=== PATIENT | male | born 1990 | race Caucasian/White ===

== ENCOUNTER 2021-01-11 14:38 | Emergency (ER) | payer OTHER, SELFPAY ==
[2021-01-11 14:44] VITALS: BP 163/89; PULSE 75; RESP 16; TEMP 37.1; O2SAT 97
--- NOTE | 2021-01-11 14:47 | ED.EAR ---
HPI - Ear Problem General Chief complaint: Ear Stated complaint: ear pain Time Seen by Provider: 01/11/21 14:47 Source: patient and RN notes reviewed Mode of arrival: ambulatory Limitations: no limitations History of Present Illness HPI Narrative: 30-year-old male presents to the [facility] with complaints of right ear pain that started 20 minutes prior to arrival. Patient has not taken anything for pain. Denies any trauma. No fevers. Denies any past medical history. Related Data Allergies Allergy/AdvReac Type Severity Reaction Status Date / Time No Known Allergies Allergy Verified 05/17/20 15:47 Review of Systems Review of Systems: All systems reviewed & are unremarkable except as noted in HPI and below Constitutional: Constitutional: Reports no additional constitutional complaints, Denies chills and Denies fever(s) Eyes: Eyes: Reports no additional eye complaints ENT: Reports as per HPI Comments: Right ear pain Cardiovascular: Cardiovascular: Reports no additional cardiovascular complaints and Denies chest pain Respiratory: Respiratory: Reports no additional respiratory complaints, Denies cough and Denies dyspnea Gastrointestinal: Gastrointestinal: Reports no additional gastrointestinal complaints Musculoskeletal: Musculoskeletal: Reports no additional musculoskeletal complaints Integumentary/Breasts: Skin/Breast: Reports system reviewed and no additional complaints, except as docu Neurologic: Reports system reviewed and no additional complaints, except as documented Psychiatric: Psychiatric: Reports no additional psychiatric complaints Allergic/Immunologic: Allergic/Immunologic: Reports no additional allergic/immunologic complaints PMFSH Past Medical History Medical History (Updated 01/11/21 @ 14:53 by Carisa Chacon) Prediabetes Restless leg syndrome Family History Family History Grandparent Diabetes mellitus Other Depression Family history of malignant neoplasm of breast in first degree relative Social History Social History Smoking status: Never smoker Alcohol intake: never Comments At the time of my signature, I reviewed and agree with the nursing past medical, surgical, social, and family history. There is no relevant family history pertinent to the patient complaint. Exam Const: General: no acute distress and alert Nutritional Appearance: well nourished and obese morbidly obese Orientation/consciousness: patient oriented x3 Limitations: no limitations HENMT: Head: normal to inspection Ears: hearing grossly normal bilaterally, external ears normal, TM's normal bilaterally and Abnormal EAC present erythema on the right, edema on the right and EAC tenderness on the right; no foreign body and no otic discharge General nose exam: Normal external nose present, Normal nares present, Normal nasal mucous membranes and turbinates present and No nasal discharge present Face and sinus: normal facial exam and sinuses nontender Mouth: Yes Normal oral and palatal mucosa present and Yes lip normal Throat: posterior oropharynx normal, tonsils normal, uvula midline and no uvular edema Eyes: Conjunctivae: conjunctivae normal Pupils: Equal, round and reactive pupils present Neck: Neck: normal visual inspection, no lymphadenopathy and no meningeal signs Chest: Chest palpation & inspection: normal inspection of the chest Resp: Effort & Inspection: normal respiratory effort and no use of accessory muscles Auscultation: clear to auscultation bilaterally, no crackles, no rales, no rhonchi and no wheezes Cardio: Rate: regular rate Rhythm: regular rhythm Skin: General skin exam: normal color Rashes: no rashes Wounds: no wounds Neuro: General: patient oriented x3, moves all extremities, no meningeal signs and no focal motor deficits Speech: normal speech Gait exam (Neuro): Normal gait present Extr
== END 2021-01-11 15:03 | disposition home or self-care (01) ==
PROVIDERS: Emergency Provider Nurse Practitioner; PCP Family Medicine
DX: H60.501 Unspecified acute noninfective otitis externa, right ear (principal); G25.81 Restless legs syndrome
CPT/HCPCS: 99213; G0463

== ENCOUNTER → 2021-01-14 06:55 | Outpatient (CLI) | payer OTHER, SELFPAY ==
[2021-01-14 17:52] LABS: SARS-CoV-2 RNA PCR Negative
== END ==
PROVIDERS: PCP Family Medicine; Visit Provider Family Medicine
DX: R50.9 Fever, unspecified (principal); Z20.822 Contact with and (suspected) exposure to COVID-19
CPT/HCPCS: C9803; U0003; U0005

== ENCOUNTER 2021-06-01 14:56 | Emergency (ER) | payer OTHER, SELFPAY ==
[2021-06-01 15:08] VITALS: BP 138/70; PULSE 69; RESP 16; TEMP 36.2; O2SAT 99
--- NOTE | 2021-06-01 15:08 | ED.EXTPRO ---
HPI - Extremity Problem General Chief complaint: Extremity Problem,Nontraumatic Stated complaint: lt foot pain History of Present Illness HPI Narrative: Patient comes in complaining of pain of the left foot and states that it has been hurting for about a month but he has not had a opportunity to have it evaluated. Paitent states that he has continued to walk on it but it is proressively getting worse. Related Data Allergies Allergy/AdvReac Type Severity Reaction Status Date / Time No Known Allergies Allergy Verified 05/17/20 15:47 Review of Systems Review of Systems: left dorsal foot pain All systems reviewed & are unremarkable except as noted in HPI and below PMFSH Past Medical History Medical History (Updated 06/01/21 @ 15:17 by Mark Anthony Hicks NP) Prediabetes Restless leg syndrome Family History Family History Grandparent Diabetes mellitus Other Depression Family history of malignant neoplasm of breast in first degree relative Social History Social History Smoking status: Never smoker Alcohol intake: never Comments At time as signature, I have reviewed and agree with nursing past medical, social, surgical and family history. Please see nursing chart for further information. There is no relevant family history pertinent to the presenting complaint. Exam Narrative: GENERAL:Well-appearing, well-nourished, and in no acute distress. HEAD:Normocephalic EYES: PERRLA CHEST: No respiratory distress. HEART: Regular rate and rhythm. ABDOMEN: Soft, nontender, nondistended EXTREMITIES: decreased range of motion due to dorsal pain that shoot pain with palpation at the middle of metatarsal area. NEURO: No focal deficits. Alert and oriented x3. Course Vital Signs Vital signs: Vital Signs Temperature 97.2 F L 06/01/21 15:08 Pulse Rate 69 06/01/21 15:08 Respiratory Rate 16 06/01/21 15:08 Blood Pressure 138/70 06/01/21 15:08 Pulse Oximetry 99 06/01/21 15:08 Temperature 97.2 F L 06/01/21 15:08 Pulse Rate 69 06/01/21 15:08 Respiratory Rate 16 06/01/21 15:08 Blood Pressure 138/70 06/01/21 15:08 Pulse Oximetry 99 06/01/21 15:08 Discharge Plan Discharge Clinical Impression: Plantar fasciitis of left foot Patient Disposition: Home, Self-Care Condition: Stable Instructions: Antibiotic Form, Plantar Fasciitis (ED), Plantar Fasciitis Exercises (ED) Additional Instructions: Avoid weight bearing until the pain subsides. Ice to the area 20-30 minutes 4-6 times a day Elastic wrap or orthopedic splint as directed for comfort for the next 5-7 days Tylenol for lesser pain Ibuprofen regularly for the next 2-3 days for the inflammation Follow up with your primary care provider if the condition is not improving within 1 week or sooner if the condition worsens with numbness, tingling, decrease sensation with weakness to seek ER. You may need to get some new shoes and to see a human resources technician. If you continue to have pain it is important to see Podiatry Prescriptions: New ibuprofen 600 mg tablet 600 mg PO TID PRN (Reason: pain) Qty: 30 RF: 0 No Action paroxetine HCl 40 mg tablet See Rx Instructions .ROUTE .COMPLEX Qty: 90 RF: 1 trazodone 50 mg tablet See Rx Instructions .ROUTE .COMPLEX Qty: 60 RF: 3 Follow-up/Referrals: Sammy Butler MD [Primary Care Provider] - Stand Alone Forms: Work/School Release IP Time of Disposition: 15:17
== END 2021-06-01 15:24 | disposition home or self-care (01) ==
PROVIDERS: Emergency Provider Nurse Practitioner Family; PCP Family Medicine
DX: M72.2 Plantar fascial fibromatosis (principal); R73.03 Prediabetes; G25.81 Restless legs syndrome
CPT/HCPCS: 99213; G0463

== ENCOUNTER 2022-03-13 04:39 | Emergency (ER) | payer OTHER, SELFPAY ==
--- NOTE | ~2022-03-13 | XR_ITS ---
EXAMINATION: XR chest 1V portable DATE: 03/13/2022 06:23 INDICATION: Chest pain. TECHNIQUE: A single frontal view of the chest was obtained. COMPARISON: Chest 2 views 01/13/2014, CT abdomen and pelvis 01/08/2013 FINDINGS: The chest demonstrates clear lungs without pneumonia, pleural effusion, or pneumothorax. Th e heart size is normal. IMPRESSION: 1. No acute cardiopulmonary disease. Reviewed, dictated and finalized at location A.
[2022-03-13 04:43] VITALS: BP 157/81; PULSE 77; RESP 18; TEMP 36.8; O2SAT 97
[2022-03-13 05:33] LABS: Basophils Percent Auto 0.4 % (0.2-1.2); Eosinophils Absolute Auto 0.4 K/mm3 (0-0.3); Hematocrit 41.9 % (42.0-52.0); Immature Granulocyte Absolute 0.03 K/mm3 (0.00-0.031); Immature Granulocyte Percent A 0.3 % (0-0.5); Lymphocytes Absolute Auto 2.93 K/mm3 (0.9-3.2); Lymphocytes Percent Auto 28.4 % (18.3-44.2); Mean Corpuscular HGB Conc 33.4 g/dl (32-36); Mean Corpuscular Hemoglobin 29.5 pg (26-34); Mean Corpuscular Volume 88.4 fl (80-100); Mean Platelet Volume 11.1 fl (7.4-10.4); Monocytes Absolute Auto 0.8 K/mm3 (0.1-0.6); Monocytes Percent Auto 7.9 % (2.6-8.5); Neutrophils Absolute Auto 6.1 K/mm3 (1.3-6.7); Platelet Count Result 290 k/mm3 (150-375); Red Blood Count 4.74 M/mm3 (4.6-6.20); Red Cell Distribution Width 12.6 % (11.5-14.5); White Blood Count 10.3 K/mm3 (4.5-10.0)
[2022-03-13 05:35] LABS: Appearance Urine Clear (Clear); Bilirubin Urine 1+ (Negative); Blood Urine Negative (Negative); Color Urine Yellow (Yellow); Glucose Urine UA Negative (Negative); Ketones Urine 1+ mg/dL (Negative); Leukocyte Esterase Ur Negative LEU/UL (Negative); Nitrate Urine Negative (Negative); Protein Urine Negative (Negative)
[2022-03-13 05:39] LABS: Bacteria Urine Trace /hpf; Mucus Urine Heavy /lpf; RBC Urine 0-2 /hpf (0-2); Squamous Epithelial Cell Urine Few /hpf (Few); WBC Urine 0-3 /hpf
[2022-03-13 05:40] VITALS: BP 128/56; PULSE 70; RESP 16; O2SAT 96
[2022-03-13 05:40] LABS: Add Urine Microscopic? YES
--- NOTE | 2022-03-13 05:41 | ECG_ITS ---
Measurements Intervals [place] Rate: 69 P: 20 [place]: 170 QRS: 19 QRSD: 105 T: 14 QT: 409 QTc: 440 Interpretive Statements SINUS RHYTHM INCOMPLETE RIGHT BUNDLE BRANCH BLOCK BORDERLINE ST-T WAVE ABNORMALITY- INFERIOR LEADS BASELINE ARTIFACT- III, AVF BORDERLINE ECG NO PREVIOUS ECG AVAILABLE FOR COMPARISON Electronically Signed On 03-13-2022 6:57:46 CDT by Jace Melgar D.O.
--- NOTE | 2022-03-13 05:41 | ED.GENADULT ---
HPI - General Adult General Chief complaint: Abdominal Pain Stated complaint: ABD pain Time Seen by Provider: 03/13/22 04:54 History of Present Illness HPI narrative: this is a 31-year-old male presenting to the ED with a chief complaint of epigastric/ chest pain. Patient says he was watching TV at 1:00 a.m. when he started to have a pressure right below his sternum. It is nonradiating. 5/10 in intensity. It was constant for 45 minutes and then abated. He has never experienced pain like this before. There are no exacerbating or alleviating factors. He did become nauseous but denies vomiting. He denies diaphoresis, radiation or exertional component. Patient has been feeling well otherwise the last several days. His last bowel movement was 2 hours ago and was normal in nature. The patient is anxious that he may be having a heart attack. Related Data Allergies Allergy/AdvReac Type Severity Reaction Status Date / Time No Known Allergies Allergy Verified 03/13/22 05:20 Review of Systems Review of Systems: CONSTITUTIONAL: Denies night sweats. EYES: No eye pain ENT: Denies rhinorrhea CARDIOVASCULAR: Denies palpitations RESPIRATORY: Denies hemoptysis GASTROINTESTINAL: Denies hematemesis GENITOURINARY: Denies hematuria. SKIN: Denies rash MUSCULOSKELETAL: Denies myalgia. NEUROLOGIC: Denies weakness. PSYCHIATRIC: Denies delusions PMFSH Past Medical History Medical History Prediabetes Restless leg syndrome Family History Family History Grandparent Diabetes mellitus Other Depression Family history of malignant neoplasm of breast in first degree relative Social History Social History Smoking status: Never smoker Alcohol intake: never Exam Narrative: APPEARANCE: No apparent distress. Head atraumatic. EYES: PERRLA/EOMI, NOSE: Normal no drainage NECK: Supple, Trachea midline RESPIRATORY: CTAB, No increased work of breathing. CARDIOVASCULAR: S1S2 appreciated ABDOMINAL: Patient has mild tenderness to palpation in the epigastric area. The wrist was abdomen is obese nontender with no guarding or rebound. MUSCULOSKELETAl: No obvious deformities NEURO: Alert. Moving 4/4 extremities SKIN:: Warm, dry. Normal color PSYCHIATRIC: Normal affect Course Vital Signs Vital signs: Vital Signs Temperature 98.2 F 03/13/22 04:43 Pulse Rate 77 03/13/22 04:43 Respiratory Rate 18 03/13/22 04:43 Blood Pressure 157/81 H 03/13/22 04:43 Pulse Oximetry 97 03/13/22 04:43 Oxygen Delivery Room Air 03/13/22 04:43 Temperature 98.2 F 03/13/22 04:43 Pulse Rate 70 03/13/22 05:40 Respiratory Rate 16 03/13/22 05:40 Blood Pressure 128/56 L 03/13/22 05:40 Pulse Oximetry 96 03/13/22 05:40 Oxygen Delivery Room Air 03/13/22 04:43 Medical Decision Making MDM Narrative Medical decision making narrative: This is a 31-year-old male presenting with a chief complaint of epigastric/ chest pain. Patient is most concerning is having a heart attack. Basic lab work including troponin will be ordered. EKG and chest x-ray also been obtained. Patient also has epigastric tenderness which is more consistent with gastritis. Patient will be given a GI cocktail to see if that relieves his symptoms. Lab work was within normal limits. Patient's troponin was undetectable. Has been over 3 hours since the chest pain. It also was not required. EKG interpretation: Rhythm [sinus], Rate 69, [place] -[normal], [place] -[normal], QRS [narrow], QTC [normal], T waves -[negative for concerning inversions], ST Segments - [Negative for concerning elevations] Final interpretations: [Normal Sinus Rhythm] Chest x-ray Was negative for any acute cardiopulmonary disease. Patient's EKGs and labs are reviewed without significant high risk changes. Cardiac risk f
[2022-03-13 05:47] LABS: Alanine Aminotransferase 34 U/L (6-50); Albumin Level 4.2 g/dL (3.5-5.1); Alkaline Phosphatase 67 U/L (38-126); Anion Gap 10 mmol/L (8-16); Aspartate Amino Transferase 45 U/L (17-59); Bilirubin,Total 0.6 mg/dL (0.2-1.3); Blood Urea Nitrogen 12 mg/dL (9-20); Calcium 9.1 mg/dL (8.4-10.2); Carbon Dioxide 25 mmol/L (22-30); Chloride 103 mmol/L (98-107); Estimated CRCL calculation 225 ml/min; Estimated Glomerular Filt Rate > 60; Glucose 121 mg/dL (65-110); Lipase 47 U/L (23-300); Potassium 3.8 mmol/L (3.4-5.0); Sodium 138 mmol/L (137-145)
[2022-03-13] MEDS: FAMOTIDINE 20 MG/2 ML VIAL IV PUSH (05:48)
[2022-03-13] MEDS: MAG HYDROX/AL HYDROX/SIMETH 30 ML UDC PO (05:48)
[2022-03-13 06:45] LABS: Troponin I < 0.012 ng/mL (0.000-0.034)
[2022-03-13 07:13] VITALS: BP 116/57; PULSE 73; RESP 18; O2SAT 98
== END 2022-03-13 07:14 | disposition home or self-care (01) ==
PROVIDERS: Emergency Provider Emergency Medicine; PCP Family Medicine
DX: K29.70 Gastritis, unspecified, without bleeding (principal); R07.9 Chest pain, unspecified; R73.03 Prediabetes; G25.81 Restless legs syndrome; I45.10 Unspecified right bundle-branch block; R94.31 Abnormal electrocardiogram [ECG] [EKG]
CPT/HCPCS: 36415; 71045; 80053; 81001; 83690; 84484; 85025; 93005; 96374; 99284; A9270

== ENCOUNTER 2023-03-10 12:30 | Outpatient (CLI) | payer OTHER, SELFPAY ==
[2023-03-10 12:50] LABS: Basophils Percent Auto 0.5 % (0.2-1.2); Eosinophils Absolute Auto 0.2 K/mm3 (0-0.3); Eosinophils Percent Auto 1.9 % (0-4.4); Hematocrit 42.6 % (42.0-52.0); Hemoglobin 13.8 g/dL (14.0-18.0); Immature Granulocyte Absolute 0.02 K/mm3 (0.00-0.031); Immature Granulocyte Percent A 0.3 % (0-0.5); Lymphocytes Absolute Auto 2.44 K/mm3 (0.9-3.2); Lymphocytes Percent Auto 30.8 % (18.3-44.2); Mean Corpuscular HGB Conc 32.4 g/dl (32-36); Mean Corpuscular Volume 89.5 fl (80-100); Mean Platelet Volume 10.8 fl (7.4-10.4); Monocytes Absolute Auto 0.6 K/mm3 (0.1-0.6); Monocytes Percent Auto 7.4 % (2.6-8.5); Neutrophils Absolute Auto 4.7 K/mm3 (1.3-6.7); Neutrophils Percent Auto 59.1 % (45.5-73.1); Platelet Count Result 271 k/mm3 (150-375); Red Blood Count 4.76 M/mm3 (4.6-6.20); Red Cell Distribution Width 12.2 % (11.5-14.5); White Blood Count 7.9 K/mm3 (4.5-10.0)
[2023-03-10 13:02] LABS: Alanine Aminotransferase 35 U/L (6-50); Albumin Level 4.2 g/dL (3.5-5.1); Alkaline Phosphatase 63 U/L (38-126); Anion Gap 4 mmol/L (8-16); Aspartate Amino Transferase 34 U/L (17-59); Bilirubin,Total 0.8 mg/dL (0.2-1.3); Blood Urea Nitrogen 9 mg/dL (9-20); Carbon Dioxide 32 mmol/L (22-30); Chloride 101 mmol/L (98-107); Cholesterol 163 mg/dL (0-200); Estimated Glomerular Filt Rate > 60; Glucose 110 mg/dL (65-110); HDL Direct 47 mg/dL; Potassium 3.7 mmol/L (3.4-5.0); Sodium 137 mmol/L (137-145); Triglycerides 131 mg/dL (<150)
[2023-03-10 13:08] LABS: Hemoglobin A1C 5.9 % (<5.7)
[2023-03-10 13:13] LABS: LDL Cholesterol Direct 82 mg/dL
== END 2023-03-10 12:31 | disposition home or self-care (01) ==
PROVIDERS: PCP Family Medicine; Visit Provider Nurse Practitioner Family
DX: R73.03 Prediabetes (principal); K75.9 Inflammatory liver disease, unspecified; K76.0 Fatty (change of) liver, not elsewhere classified; I10 Essential (primary) hypertension
CPT/HCPCS: 36415; 80053; 80061; 83036; 84443; 85025

== ENCOUNTER 2023-11-05 17:59 | Emergency (ER) | payer OTHER, SELFPAY ==
--- NOTE | ~2023-11-05 | CT_ITS ---
EXAMINATION: CT lumbar spine wo con DATE: 11/05/2023 19:03 INDICATION: lbp, worse on left side . TECHNIQUE: Computed tomography (CT) of the lumbar spine was performed without intravenous contrast. A utomated exposure control and iterative reconstruction technique were employed. The dose-length produ ct was 1493.51 mGy-cm. COMPARISON: Pelvis 01/08/2013. FINDINGS: Exam limited by body habitus. 5 nonrib-bearing lumbar-type vertebral bodies. Pedicles intac t. Normal vertebral body alignment. Vertebral body heights preserved. Multilevel moderate degenerativ e disc disease. Multilevel moderate facet arthropathy. Multilevel moderate bilateral neural foraminal narrowing secondary to degenerative changes. Moderate central canal narrowing at L3-4, secondary to degenerative disc, facet, and ligamentum changes. Mild degenerative changes in the SI joints. IMPRESSION: No acute fracture or traumatic malalignment in the lumbar spine. Reviewed, dictated and finalized at location K.
[2023-11-05 18:01] VITALS: BP 133/76; PULSE 74; RESP 18; TEMP 36.1; O2SAT 100
--- NOTE | 2023-11-05 18:06 | ED.BACK ---
HPI - Back Pain/Injury General Chief Complaint: Back Pain/Injury <Cindy Mckeon PA-C - Last Filed: 11/05/23 18:14> Stated Complaint: sciatic nerve pain <Cindy Mckeon PA-C - Last Filed: 11/05/23 18:14> Time Seen by Provider: 11/05/23 18:06 <Cindy Mckeon PA-C - Last Filed: 11/05/23 18:14> Focused HPI: Patient is a 32-year-old male who presents the ED with report of lower back pain. Patient reports having pain all day today, but states pain became severe approximately 10 minutes prior to coming to the ED. He has not tried anything for pain today. He reports history of similar pain a few weeks ago, which improved on its own after a few days. Denies any recent strenuous activity, but does note he has been exercising over the last few days. States pain is worse throughout left lower back. Worse with any type of movement. Denies radiation down legs. Denies incontinence, saddle anesthesia, abdominal pain, dysuria, hematuria. GENERAL: Well-appearing, morbidly obese, and in no acute distress. HEAD: Normocephalic, atraumatic. CHEST: Clear to auscultation. ?No respiratory distress. HEART: Regular rate and rhythm.? MSK: No midline spinal tenderness. TTP throughout L lumbosacral region. No palpable deformities. Sensation intact. NEURO: ?Alert and oriented x3. Patient screened in triage and initial orders placed.? ?Additional care and disposition to be based upon?diagnostic testing and treatment. <Cindy Mckeon PA-C - Last Filed: 11/05/23 18:14> Source: patient <Cindy Mckeon PA-C - Last Filed: 11/05/23 18:14> Mode of arrival: ambulatory <Cindy Mckeon PA-C - Last Filed: 11/05/23 18:14> Limitations: no limitations <Cindy Mckeon PA-C - Last Filed: 11/05/23 18:14> History of Present Illness HPI Narrative: agree with HPI. <Earle Cruz MD - Last Filed: 11/05/23 20:32> Related Data Allergies/Adverse Reactions: Allergies Allergy/AdvReac Type Severity Reaction Status Date / Time No Known Allergies Allergy Verified 12/11/22 16:01 <Cindy Mckeon PA-C - Last Filed: 11/05/23 18:14> Review of Systems Gastrointestinal: Gastrointestinal: Reports no additional gastrointestinal complaints <Earle Cruz MD - Last Filed: 11/05/23 20:32> Musculoskeletal: Musculoskeletal: Reports back pain, Denies arthralgias and Denies joint swelling <Earle Cruz MD - Last Filed: 11/05/23 20:32> Neurologic: Reports system reviewed and no additional complaints, except as documented <Earle Cruz MD - Last Filed: 11/05/23 20:32> [facility] Past Medical History Medical History: Medical History Prediabetes Restless leg syndrome <Cindy Mckeon PA-C - Last Filed: 11/05/23 18:14> Family History Family History: Family History Grandparent Diabetes mellitus Other Depression Family history of malignant neoplasm of breast in first degree relative <Cindy Mckeon PA-C - Last Filed: 11/05/23 18:14> Social History Social History: Social History Smoking status: Never smoker Alcohol intake: never <Cindy Mckeon PA-C - Last Filed: 11/05/23 18:14> Exam Narrative: GENERAL: Well-appearing, Obese, and in no acute distress. HEAD: Normocephalic, atraumatic. ENT: Mucous membranes moist. CHEST: Clear to auscultation. No respiratory distress. HEART: Regular rate and rhythm. Normal peripheral pulses. back: No midline tenderness of the T-spine. There is generalized tenderness of the low back more so on left than the right. EXTREMITIES: Normal range of motion. NEURO: Alert and oriented x3. PSYCH: Normal mood and affect. <Earle Cruz MD - Last Filed: 11/05/23 20:32> Course Course Emergency Course:
[2023-11-05] MEDS: ACETAMINOPHEN 500 MG TABLET 1000 MG PO (18:34)
[2023-11-05] MEDS: CYCLOBENZAPRINE HCL 10 MG TABLET PO (18:34)
[2023-11-05] MEDS: methylPREDNISolone SOD SUCC 125 MG VIAL IM (18:35)
[2023-11-05] MEDS: KETOROLAC (*BKC) 60 MG/2 ML VIAL IM (18:37)
[2023-11-05 20:50] VITALS: BP 142/71; PULSE 70; RESP 17; O2SAT 99
== END 2023-11-05 20:52 | disposition home or self-care (01) ==
PROVIDERS: Emergency Provider Emergency Medicine; PCP Nurse Practitioner Family
DX: M54.50 Low back pain, unspecified (principal); G25.81 Restless legs syndrome; R73.03 Prediabetes
CPT/HCPCS: 72131; 96372; 99284; A9270; J1885; J2919

== ENCOUNTER 2024-02-12 08:25 | Emergency (ER) | payer OTHER, SELFPAY ==
--- NOTE | ~2024-02-12 | XR_ITS ---
XR chest 2V Ordering provider: Dinorah Marie MD History: 33 years Male with . CHEST PAIN . Comparison: March 13, 2022 FINDINGS: MEDIASTINUM: The cardiac silhouette is not enlarged. LUNGS: No infiltrates, effusions or pneumothorax. OTHER: No free air under the diaphragm. Degenerative changes of the spine. IMPRESSION: No acute cardiopulmonary pathology. Reviewed, dictated and finalized at location A.
--- NOTE | 2024-02-12 08:27 | ECG_ITS ---
Test Date: 2024-02-12 08:32:56 Measurements Intervals [place] Rate: 76 P: 49 DC: 156 QRS: 3 QRSD: 109 T: 24 QT: 388 QTc: 437 Interpretive Statements SINUS RHYTHM INCOMPLETE RIGHT BUNDLE BRANCH BLOCK [90+ ms QRS DURATION, TERMINAL R IN V1/V2, 40+ ms S IN I/aVL/V4/V5/V6] No previous ECG available for comparison Electronically Signed On 02-12-2024 10:24:52 CDT by Oxana Rivas M.D.
[2024-02-12 08:30] VITALS: BP 181/97; PULSE 80; RESP 19; TEMP 36.6; O2SAT 100
[2024-02-12] MEDS: ASPIRIN 81 MG CHEWABLE TABLET 324 MG PO (08:49)
[2024-02-12 08:54] VITALS: PULSE 70
[2024-02-12 09:04] LABS: Basophils Percent Auto 0.4 % (0.2-1.2); Eosinophils Absolute Auto 0.1 K/mm3 (0-0.3); Eosinophils Percent Auto 1.8 % (0-4.4); Hematocrit 42.7 % (42.0-52.0); Hemoglobin 14.1 g/dL (14.0-18.0); Immature Granulocyte Absolute 0.02 K/mm3 (0.00-0.031); Immature Granulocyte Percent A 0.3 % (0-0.5); Lymphocytes Absolute Auto 2.01 K/mm3 (0.9-3.2); Lymphocytes Percent Auto 27.8 % (18.3-44.2); Mean Corpuscular Hemoglobin 30.1 pg (26-34); Mean Corpuscular Volume 91.2 fl (80-100); Mean Platelet Volume 11.4 fl (7.4-10.4); Monocytes Absolute Auto 0.5 K/mm3 (0.1-0.6); Monocytes Percent Auto 7.3 % (2.6-8.5); Neutrophils Absolute Auto 4.5 K/mm3 (1.3-6.7); Neutrophils Percent Auto 62.4 % (45.5-73.1); Platelet Count Result 270 k/mm3 (150-375); Red Blood Count 4.68 M/mm3 (4.6-6.20); Red Cell Distribution Width 12.4 % (11.5-14.5); White Blood Count 7.2 K/mm3 (4.5-10.0)
[2024-02-12 09:10] LABS: Alanine Aminotransferase 41 U/L (6-50); Albumin Level 4.3 g/dL (3.5-5.1); Alkaline Phosphatase 64 U/L (38-126); Anion Gap 11 mmol/L (4-12); Aspartate Amino Transferase 87 U/L (17-59); Bilirubin,Total 1.2 mg/dL (0.2-1.3); Blood Urea Nitrogen 13 mg/dL (9-20); Carbon Dioxide 27 mmol/L (22-30); Chloride 100 mmol/L (98-107); Estimated CRCL calculation 222 ml/min; Estimated Glomerular Filt Rate > 60; Glucose 144 mg/dL (65-110); Lipase 54 U/L (23-300); Potassium 4.3 mmol/L (3.4-5.0); Sodium 138 mmol/L (137-145)
[2024-02-12 09:13] VITALS: BP 135/64; PULSE 66; RESP 17; O2SAT 97
[2024-02-12 09:14] LABS: Partial Thromboplastin Time 25.4 Seconds (22.3-36.8)
[2024-02-12 09:18] LABS: Troponin I < 0.012 ng/mL (0.000-0.034)
--- NOTE | 2024-02-12 09:22 | ED.CHESTPAIN ---
HPI - Chest Pain General Chief Complaint: Chest Pain Stated Complaint: CHEST PAIN X1 HOUR Time Seen by Provider: 02/12/24 08:53 History of Present Illness HPI narrative: 33-year-old male with no significant medical problems presents to the emergency room for evaluation of midsternal chest pain that began this morning. States pain woke him from sleep. describes pain as a pressure sensation it does not radiate. States sitting up and standing alleviates the pain, and lying flat exacerbates the pain. Denies any shortness of breath, difficulty breathing, syncopal episode, dizziness or lightheadedness. Patient states that when he awoke, he was experiencing palpitations and felt like his heart was racing. Has had similar episode in the recent past, was diagnosed with gastritis. Reports pain lasts for up to 10 minutes at a time. Related Data Allergies Allergy/AdvReac Type Severity Reaction Status Date / Time No Known Allergies Allergy Verified 11/14/23 16:06 Review of Systems Review of Systems: ROS unremarkable except for noted in HPI PMFSH Past Medical History Medical History Prediabetes Restless leg syndrome Family History Family History Grandparent Diabetes mellitus Other Depression Family history of malignant neoplasm of breast in first degree relative Social History Social History Smoking status: Never smoker Alcohol intake: never Exam Narrative: GENERAL: Well-appearing, well-nourished, no physical limitations, and in no acute distress. HEAD: Normocephalic, atraumatic. EYES: Conjunctivae normal, PERRLA and EOMI. CHEST: Clear to auscultation. No respiratory distress. No wheezes rales or rhonchi. left midsternal tenderness. HEART: Regular rate and rhythm. No murmur heard. Normal peripheral pulses. ABDOMEN: Soft, nontender, nondistended, normal active bowel sounds. morbidly obese EXTREMITIES: Normal range of motion. No edema. No clubbing or cyanosis SKIN: Warm, dry, no rash. No noted wounds NEURO: No focal deficits. Alert and oriented x3. MAEW. CN's II-XI intact bilaterally, normal gait PSYCH: Cooperative. Normal mood and affect. Course Vital Signs Vital signs: Vital Signs Temperature 36.6 C 02/12/24 08:30 Pulse Rate 80 02/12/24 08:30 Respiratory Rate 19 02/12/24 08:30 Blood Pressure 181/97 H 02/12/24 08:30 Pulse Oximetry 100 02/12/24 08:30 Oxygen Delivery Room Air 02/12/24 08:30 Temperature 36.6 C 02/12/24 08:30 Pulse Rate 74 02/12/24 12:04 Respiratory Rate 13 02/12/24 12:04 Blood Pressure 129/86 02/12/24 12:04 Pulse Oximetry 97 02/12/24 12:04 Oxygen Delivery Room Air 02/12/24 08:35 MDM - Chest Pain MDM Narrative Medical decision making narrative: 33-year-old morbidly obese male presented to the emergency room for evaluation of chest pain that began this morning upon awaken Lab Data 02/12/24 08:51 02/12/24 08:51 Labs: Lab Results 02/12/24 02/12/24 Range/Units 08:51 11:40 WBC 7.2 (4.5-10.0) K/mm3 RBC 4.68 (4.6-6.20) M/mm3 Hgb 14.1 (14.0-18.0) g/dL Hct 42.7 (42.0-52.0) % MCV 91.2 (80-100) fl MCH 30.1 (26-34) pg MCHC 33.0 (32-36) g/dl RDW 12.4 (11.5-14.5) % Plt Count 270 (150-375) k/mm3 MPV 11.4 H (7.4-10.4) fl Immature Gran % (Auto) 0.3 (0-0.5) % Neut % (Auto) 62.4 (45.5-73.1) % Lymph % (Auto) 27.8 (18.3-44.2) % [place] % (Auto) 7.3 (2.6-8.5) % Eos % (Auto) 1.8 (0-4.4) % Baso % (Auto) 0.4 (0.2-1.2) % Lymph # (Auto) 2.01 (0.9-3.2) K/mm3 [place] # (Auto) 0.5 (0.1-0.6) K/mm3 Eos # (Auto) 0.1 (0-0.3) K/mm3 Baso # (Auto) 0.0 (0.0-0.1) K/mm3 Abs Immat Gran (auto) 0.02 (0.00-0.031) K/mm3 Absolute Neuts (auto) 4.5 (1.3-6.7) K/mm3 Absolute Nuc
[2024-02-12 09:30] VITALS: BP 128/70; PULSE 75; RESP 18; O2SAT 98
[2024-02-12] MEDS: BELLADONNA ALK/PHENOB ELIX 10 ML, MAG HYDROX/ALUMINUM HYD/SIMETH 30 ML, LIDOCAINE HCL 2... PO (09:42)
[2024-02-12 10:20] LABS: D Dimer 0.29 ug/mL (<0.48)
--- NOTE | 2024-02-12 11:29 | ECG_ITS ---
Test Date: 2024-02-12 11:45:57 Measurements Intervals [place] Rate: 66 P: 31 [place]: 155 QRS: 10 QRSD: 107 T: 19 QT: 393 QTc: 413 Interpretive Statements SINUS RHYTHM INCOMPLETE RIGHT BUNDLE BRANCH BLOCK [90+ ms QRS DURATION, TERMINAL R IN V1/V2, 40+ ms S IN I/aVL/V4/V5/V6] Compared to ECG 02/12/2024 08:32:56 No significant changes Electronically Signed On 02-12-2024 15:19:31 CDT by Oxana Rivas M.D.
[2024-02-12 12:04] VITALS: BP 129/86; PULSE 74; RESP 13; O2SAT 97
[2024-02-12 12:08] LABS: Troponin I < 0.012 ng/mL (0.000-0.034)
== END 2024-02-12 12:49 | disposition home or self-care (01) ==
PROVIDERS: Student in an Organized Health Care Education/Training Program; Emergency Provider Nurse Practitioner Family; PCP Family Medicine
DX: R07.89 Other chest pain (principal); G25.81 Restless legs syndrome; R73.03 Prediabetes; Z79.899 Other long term (current) drug therapy; I45.10 Unspecified right bundle-branch block
CPT/HCPCS: 36415; 71046; 80053; 83690; 84484; 85025; 85380; 85610; 85730; 93005; 99284; A9270

== ENCOUNTER 2024-05-24 16:00 | Emergency (ER) | payer SELFPAY ==
--- NOTE | 2024-05-24 16:02 | ED_ITS ---
HPI - Dental/Oral General Chief complaint: Dental/Oral Stated complaint: Tooth Pain Time Seen by Provider: 05/24/24 16:15 Source: patient Mode of arrival: ambulatory Limitations: no limitations History of Present Illness HPI Narrative: Burton is a 33-year-old male patient presenting to the clinic today with complaints of left lower jaw/tooth pain. He reports symptoms started 2-3 days ago. He states that he noticed that his tooth was broken. Denies any fevers, chills, or body aches. Last ibuprofen was at 3:00 a.m. this morning Related Data Allergies Allergy/AdvReac Type Severity Reaction Status Date / Time No Known Allergies Allergy Verified 03/21/24 16:21 Review of Systems Review of Systems: Pertinent positives per HPI. Patient denies any fever, chills, rash, headache, visual changes, dizziness, cough, runny nose, sore throat, shortness of breath, chest pain, palpitations, nausea, vomiting, diarrhea, constipation, abdominal pain, or any urinary issues. [facility] Past Medical History Medical History Prediabetes Restless leg syndrome Family History Family History Grandparent Diabetes mellitus Other Depression Family history of malignant neoplasm of breast in first degree relative Social History Social History Smoking status: Never smoker Alcohol intake: never Comments At the time of my signature, I reviewed and agree with the nursing past medical, surgical, social, and family history. There is no relevant family history pertinent to the patient complaint. Exam Narrative: General: Well-developed, well nourished, in no apparent distress Head: Normocephalic, atraumatic Eyes: Pupils equally round and reactive to light bilaterally, EOM intact, sclera and conjunctive clear, no discharge, lids normal Ears: TMs intact and clear, ear canals clear, no drainage, grossly hearing normal. Nose: Nares patent, no discharge, no inflammation, no sinus tenderness. Mouth: Oropharynx without lesions or masses, poor dentition, MMM. Multiple decayed teeth with cavities. Neck: Supple, trachea midline, no enlargement of anterior or posterior cervical nodes, no thyroid masses or goiter palpable. Cardio: Regular rate and rhythm, s1 and s2 normal, no murmur appreciated. Resp: Clear to auscultation bilaterally anteriorly and posteriorly, no rhonchi, rales, wheezing or rubs Course Course Emergency Course: Portions of this record may have been created with voice recognition software. Level of Care: Express Care Visit Vital Signs Vital signs: Vital Signs Temperature 37.1 C 05/24/24 16:12 Pulse Rate 80 05/24/24 16:12 Respiratory Rate 18 05/24/24 16:12 Blood Pressure 140/90 05/24/24 16:12 Pulse Oximetry 97 05/24/24 16:12 Temperature 37.1 C 05/24/24 16:12 Pulse Rate 80 05/24/24 16:12 Respiratory Rate 18 05/24/24 16:12 Blood Pressure 140/90 05/24/24 16:12 Pulse Oximetry 97 05/24/24 16:12 Vital signs reviewed MDM - Dental/Oral MDM Narrative Medical decision making narrative: At the time of visit patient is resting comfortably on the exam table. Patient appears to be nontoxic. Plan: I suspect patient has dental pain/dental caries. Recommend follow-up with his dentist as soon as possible. Toradol 60 mg IM was given in the clinic today for pain. Will send in prescription for ibuprofen 800s and amoxicillin. Supportive measures were discussed with the patient and they voiced understanding discharge instructions and agrees to treatment plan. Return precautions reviewed Differential Diagnosis Differential diagnosis: Likely gingival abscess, dental caries, toothache, dental abscess, fracture of tooth and aphthous ulcer Discharge Plan Discharge Clinical Impression: Pain, dental, Dental caries Patient Disposition: Home, Self-Care Condition: Stable Instructions: Antibiotic Form, Toothache (ED) Additional Instructions: Toradol 60 mg IM given in the clinic today May take ibuprofen and amoxicillin as prescribed May apply Orajel to the affected area to help alleviate pain May apply cool compress or warm compress to the affected area to help alleviate pain Follow-up with your dentist as soon as possible Prescriptions: New amoxicillin 875 mg tablet 875 mg PO Q12H 10 Days Qty: 20 0RF ibuprofen 800 mg tablet 800 mg PO TID 10 Days Qty: 30 0RF No Action phentermine 15 mg capsule 15 mg PO DAILY Qty: 30 0RF Rx Instructions: must administer 2 hours after breakfast paroxetine HCl 40 mg tablet 40 mg PO DAILY Qty: 90 1RF Rx Instructions: DUE FOR APPOINTMENT IN [facility] trazodone 50 mg tablet See Rx Instructions .ROUTE .COMPLEX Qty: 60 5RF Dose Instruction: TAKE 1 TO 2 TABLETS BY MOUTH ONCE DAILY AT BEDTIME FOR SLEEP Rx Instructions: TAKE 1 TO 2 TABLETS BY MOUTH ONCE DAILY AT BEDTIME FOR SLEEP Follow-up/Referrals: PHYSICIAN,GAS ADJUSTER [Primary Care Provider] - Time of Disposition: 16:17 Quality NIHSS Nursing Documentation ED NIHSS nursing documentation: reviewed/agree
[2024-05-24 16:12] VITALS: BP 140/90; PULSE 80; RESP 18; TEMP 37.1; O2SAT 97
[2024-05-24] MEDS: KETOROLAC (*BKC) 60 MG/2 ML VIAL IM (16:20)
== END 2024-05-24 16:55 | disposition home or self-care (01) ==
PROVIDERS: Emergency Provider Nurse Practitioner Family
DX: K08.89 Other specified disorders of teeth and supporting structures (principal); K02.9 Dental caries, unspecified; R73.03 Prediabetes; G25.81 Restless legs syndrome
CPT/HCPCS: 96372; 99213; G0463; J1885

== ENCOUNTER 2025-05-09 08:48 | Outpatient (CLI) | payer OTHER, SELFPAY ==
[2025-05-09 09:04] LABS: Hematocrit 41.2 % (42.0-52.0); Hemoglobin 13.3 g/dL (14.0-18.0); Immature Granulocyte Percent A 0.3 % (0-0.5); Lymphocytes Absolute Auto 2.91 K/mm3 (0.9-3.2); Mean Corpuscular HGB Conc 32.3 g/dl (32-36); Mean Corpuscular Hemoglobin 28.8 pg (26-34); Mean Corpuscular Volume 89.2 fl (80-100); Nucleated Red Blood Cells Absolute Auto 0.000 K/mm3 (0.0-0.012); Nucleated Red Blood Cells Perc 0.0 % (0.0-0.2); Platelet Count Result 262 k/mm3 (150-375); Red Blood Count 4.62 M/mm3 (4.6-6.20); White Blood Count 7.4 K/mm3 (4.5-10.0)
[2025-05-09 09:30] LABS: Alanine Aminotransferase 25 U/L (6-50); Albumin Level 3.9 g/dL (3.5-5.1); Alkaline Phosphatase 68 U/L (38-126); Anion Gap 6 mmol/L (4-12); Aspartate Amino Transferase 24 U/L (17-59); Bilirubin,Total 0.5 mg/dL (0.2-1.3); Blood Urea Nitrogen 12 mg/dL (9-20); Calcium 9.2 mg/dL (8.4-10.2); Carbon Dioxide 26 mmol/L (22-30); Chloride 106 mmol/L (98-107); Cholesterol 180 mg/dL (0-200); Estimated Glomerular Filt Rate > 60; Glucose 113 mg/dL (65-110); HDL Direct 61 mg/dL; Potassium 3.9 mmol/L (3.4-5.0); Sodium 138 mmol/L (137-145); Total Protein 7.2 g/dL (6.3-8.2); Triglycerides 99 mg/dL (<150)
[2025-05-09 09:35] LABS: Hemoglobin A1C 6.0 % (<5.7)
[2025-05-09 10:02] LABS: Thyroid Stimulating Hormone Reflex 3.760 uIU/mL (0.465-4.68)
== END 2025-05-09 08:49 | disposition home or self-care (01) ==
LOC: ANHLAB 08:49
PROVIDERS: PCP Family Medicine; Visit Provider Nurse Practitioner Family
DX: F41.1 Generalized anxiety disorder (principal); Z79.899 Other long term (current) drug therapy; K76.0 Fatty (change of) liver, not elsewhere classified; I10 Essential (primary) hypertension; F98.8 Other specified behavioral and emotional disorders with onset usually occurring in childhood and adolescence; R73.03 Prediabetes; R73.01 Impaired fasting glucose
CPT/HCPCS: 36415; 80053; 80061; 83036; 84443; 85025